=== PATIENT | male | born 1990 | race Caucasian/White ===

== ENCOUNTER 2019-05-08 20:00 | Emergency (ER) | payer SELFPAY ==
[~2019-05-08] VITALS: Ht 188 cm; Wt 81.6 kg
--- NOTE | 2019-05-08 20:00 | NUR ---
ED Nurse Note: Pt brought in by ambulance from place of work. Pt had a witnessed panic attack, pt hyperventilating, clenched fists, reports hands numb, forgets if he hit his head, pt has hx of panic attacks. VSS Pt A&Ox3
[2019-05-08 20:03] VITALS: BP 137/67
[2019-05-08] MEDS ORDERED: Tylenol #3 tab (300mg/30mg) ORAL ONE (20:15)
[2019-05-08] MEDS ORDERED: LORazepam Inj 2mg/ml 1ml IM ONE (20:15)
[2019-05-08] MEDS ORDERED: PREDNISONE20 MG ORAL (20:53)
[2019-05-08] MEDS ORDERED: PROMETHAZINE-D118 ML ORAL (20:53)
[2019-05-08] MEDS ORDERED: ALBUTEROL SULF8.5 GM INH (20:53)
--- NOTE | 2019-05-08 20:53 | Diagnostic Imaging Report ---
Indication: Syncope Technique: Contiguous 5 mm thick transaxial imaging of the head obtained in a Siemens Sensation [address] scanner. Soft tissue and bone windows generated. Automatic Exposure Control was utilized. Total Dose length Product (DLP): [address] Dose Index Volume (CTDIvol): 60 mGy Comparison: none Findings: The size and configuration of the cortical sulci, basal cisterns, and ventricles are within normal limits for age. There is no mass effect, midline shift, or edema identified. There is no evidence of acute hemorrhage or abnormal intra-axial or extra-axial fluid collections. The bones and soft tissues are unremarkable. Impression: No mass effect, edema or acute bleed. [facility] has communicated the preliminary results to the Emergency Department. Their findings are largely concordant with this report. The CT scanner at [facility] is accredited by the [employer] and the scans are performed using dose optimization techniques as appropriate to a performed exam including Automatic Exposure control.
--- NOTE | 2019-05-08 21:24 | Emergency Room Report ---
History of Present Illness General Chief Complaint: General Complaint Source: Patient (Go Ly MD) Present Illness HPI 28-year-old male presents ED for evaluation. Patient brought in by EMS. States that he may have had an anxiety attack. Happened while at work. Does not remember anything but states he may have hit his head. Woke up in the ambulance. Notes pain to the back of his head. Dull, 8 out of 10, nonradiating. Denies photophobia or blurry vision. Denies nausea or vomiting. States that he takes Ativan for anxiety. Denies any alcohol or drug use. States he feels tingling and numbness in his hands. Denies chest pain or shortness of breath. No other aggravating relieving factors. Denies any other associated symptoms (Go Ly MD) Allergies: Coded Allergies: No Known Allergies (Unverified , 05/08/19) Patient History Past Medical History: none Past Surgical History: none Pertinent Family History: none Social History: Denies: smoking, alcohol use, drug use Immunizations: UTD Reviewed Nursing Documentation: PMH: Agreed; PSxH: Agreed (Go Ly MD) Nursing Documentation-PMH Past Medical History: No History, Except For (Go Ly MD) Review of Systems All Other Systems: negative except mentioned in HPI (Go Ly MD) Physical Exam Vital Signs Date Time Temp Pulse Resp B/P (MAP) Pulse Ox O2 Delivery O2 Flow Rate FiO2 05/08/19 19:56 98.2 98 19 137/67 (90) 100 Room Air Sp02 EP Interpretation: reviewed, normal General Appearance: no apparent distress, alert, GCS 15, non-toxic Head: normocephalic, atraumatic Eyes: bilateral eye normal inspection, bilateral eye PERRL ENT: hearing grossly normal, normal pharynx, no angioedema, normal voice Neck: full range of motion, supple/symm/no masses Respiratory: chest non-tender, lungs clear, normal breath sounds, speaking full sentences Cardiovascular #1: regular rate, rhythm, no edema Cardiovascular #2: 2+ carotid (R), 2+ carotid (L), 2+ radial (R), 2+ radial (L) , 2+ dorsalis pedis (R), 2+ dorsalis pedis (L) Gastrointestinal: normal bowel sounds, non tender, soft, non-distended, no guarding, no rebound Rectal: deferred Genitourinary: normal inspection, no CVA tenderness Musculoskeletal: back normal, gait/station normal, normal range of motion, non- tender Neurologic: alert, oriented x3, responsive, motor strength/tone normal, sensory intact, speech normal Psychiatric: anxious Reflexes: 3+ bicep (R), 3+ bicep (L), 3+ tricep (R), 3+ tricep (L), 3+ knee (R) , 3+ knee (L) Lymphatic: no adenopathy (Go Ly MD) Medical Decision Making Diagnostic Impression: Primary Impression: Anxiety ER Course 28-year-old male with possible anxiety attack back to baseline feels better CT brain negative, reevaluation 9:57 PM, patient wants to go home will be leaving with his older brother Disposition home with return precautions (Michael Corado MD) CT/MRI/US Diagnostic Results CT/MRI/US Diagnostic Results : Imaging Test Ordered: CT Head Impression no acute process (Go Ly MD) Last Vital Signs Date Time Temp Pulse Resp B/P (MAP) Pulse Ox O2 Delivery O2 Flow Rate FiO2 05/08/19 21:10 98.2 05/08/19 20:03 98 19 Room Air 05/08/19 20:03 137/67 100 (Go Ly MD) Disposition: HOME, SELF-CARE Condition: Stable Referrals: NOT CHOSEN IPA/,REFERRING (PCP) [facility] Patient Instructions: Panic Attacks, [id number] Additional Instructions: The patient was provided with discharge instructions, notified to follow-up with a primary care doctor and or specialist in the next 24-48 hours, and to return to the ED if they have worsening of their symptoms. Please note that this report is being documented using [employer] technology. This can lead to erroneous entry secondary to incorrect interpretation by the dictating instrument. Go Ly MD May 08, 2019 21:24 Michael Corado MD May 08, 2019 21:58
--- NOTE | 2019-05-08 21:45 | NUR ---
ED Nurse Note: PT STABLE. FAMILY AT BEDSIDE.
[2019-05-08 22:00] VITALS: BP 137/67
--- NOTE | 2019-05-08 22:04 | NUR ---
ER DISCHARGE NOTE: Patient is cleared to be discharged per ERMD, pt is aox4, on room air, with stable vital signs. pt was given dc and prescription instructions, pt was able to verbalize understanding, pt id band and iv site removed without complications. pt is able to ambulate with steady gait. pt took all belongings. PT BROTHER DROVE PT HOME. PT VSS, CALM AND STABLE.
== END 2019-05-08 22:00 | disposition home or self-care (01) ==
LOC: EDBD 20:00 → EMR 20:30
DX: F41.9 Anxiety disorder, unspecified (principal); R51 Headache
CPT/HCPCS: 70450; 96372; 99284